=== PATIENT | female | born 1990 | race Caucasian/White ===

== ENCOUNTER 2019-05-22 06:30 | Inpatient (IN) | payer OTHER ==
--- NOTE | 2019-05-21 12:16 | PREOPHP ---
Date of Admission: 05/22/2019 History Of Present Illness: Ms. Stewart is a 28-year-old female, 3, para 2-0-0-2, now at 39+ weeks gestation. She will be admitted tomorrow for induction of labor secondary to term with favorable cervix. She has been followed by me during this without significant complications. Past Medical History: Please see record. Family History: Please see record. Review of Systems: She denies recent cough, cold, fever, or chills. No recent nausea or vomiting. No breast knots or l umps. No bowel or bladder issues. Infant has been active. She has been having more contractions. Physical Examination: General: Reveals a pleasant female, in no apparent distress. Neck: Supple without adenopathy or thyromegaly. Lungs: Clear. Cardiac: Regular rate and rhythm without murmurs. Breasts: Not examined. Abdomen: Estimated weight 7+ pounds. Pelvic: Not performed today. Extremities: No cyanosis, clubbing, or edema. is vertex presentation on external exam. Impression: Term . Plan: Patient will be admitted for induction of labor. We will rupture membranes after placement of epidural catheter because of issues with vaginismus. MICHELLE/LAZARO Voice ID: [id number]
[2019-05-22] MEDS ORDERED: Ringers Lactate 1,000 ML IV ONE (07:04)
[2019-05-22] MEDS ORDERED: METHYLERGONOVINE 0.2MG/ML AMP IM PRN ×2 (07:39→13:11)
[2019-05-22] MEDS ORDERED: Ringers Lactate 1,000 ML IV PRN (07:39)
[2019-05-22] MEDS ORDERED: PROMETHAZINE 25 MG/ML VIAL IV PRN (07:39)
[2019-05-22] MEDS ORDERED: CARBOPROST TROME 250 MCG/ML IM PRN ×2 (07:39→13:11)
[2019-05-22] MEDS ORDERED: BUTORPHANOL 1 MG/ML INJ IV PRN (07:39)
[2019-05-22] MEDS ORDERED: BUPIVACAINE 0.25% PF 30 ML VIAL IV ONE (07:52)
[2019-05-22] MEDS ORDERED: FENTANYL CITR 100 MCG/2 ML IV ONE (07:52)
[2019-05-22] MEDS ORDERED: ROPIVACAINE HCL 100 ML IV PRN (07:53)
[2019-05-22] MEDS ORDERED: Ringers Lactate 1,000 ML IV SCH (08:00)
[2019-05-22] MEDS ORDERED: OXYTOCIN/LR 20 UNIT/1,000 ML BAG IV SCH ×2 (08:00→14:00)
[2019-05-22 08:05] LABS: Urine Appearance CLEAR; Urine Bilirubin NEGATIVE (NEG); Urine Blood NEGATIVE (NEG); Urine Color YELLOW; Urine Glucose NEGATIVE (NEG); Urine Protein NEGATIVE (NEG); Urine Specific Gravity <=1.005 (1.005-1.030); Urine Urobilinogen 0.2 mg/dL (0.2-1.0)
[2019-05-22 08:06] LABS: Urine Microscopic Reflex ORDER UMIC
[2019-05-22] MEDS ORDERED: FENTANYL/BUPIVACAINE/NS/PF 200 MCG/100 ML BAG EP ONE (08:18)
[2019-05-22 08:31] LABS: Absolute Lymphocytes (CBC) 1.9 K/uL (0.7-4.9); Basophils % 0.5 % (0-1.3); Hematocrit 36.7 % (36.0-45.0); Lymphocytes % 25.5 % (15.3-44.8); MPV 8.7 fL (7.6-11.3); RBC Red Blood Cell Count 4.67 M/uL (3.86-4.86)
[2019-05-22 08:33] LABS: Urine Bacteria 20-50 /HPF (<20); Urine RBC NONE SEEN /HPF (NONE SEEN)
[2019-05-22 08:34] LABS: Urine Culture Reflex Order REFLEXED
[2019-05-22 09:34] VITALS: BMI 29.0
[2019-05-22] MEDS ORDERED: LIDOCAINE 1% MPF 30 ML VIAL ONE (10:21)
[2019-05-22] MEDS ORDERED: METHYLERGONOVINE 0.2 MG TAB PO PRN (13:11)
[2019-05-22] MEDS ORDERED: Oxycodone HCl/Acetaminophen 1 TAB TAB PO PRN (13:11)
--- NOTE | 2019-05-22 13:14 | P.BOP ---
Preoperative diagnosis: 39+wk Postoperative diagnosis: same, delivered Primary procedure: SCVD, viable female Secondary procedure: repair of 2 degree midline laceration Estimated blood loss: 300ml Anesthesia: epidural Complications: None Transferred to: Other ([id number]) Condition: Good
[2019-05-22] MEDS ORDERED: INFLUENZA VACCINE (for 3y+) 0.5 ML DOSE IMVAC ONE (17:00)
[2019-05-22] MEDS: IBUPROFEN 200 MG TAB PO PRN (18:15)
[2019-05-23] MEDS: IBUPROFEN 200 MG TAB PO PRN ×2 (00:42→08:00)
[2019-05-23] MEDS ORDERED: INFLUENZA VACCINE (for 3y+) 0.5 ML DOSE IMVAC ONE (07:44)
--- NOTE | 2019-05-23 11:33 | DN ---
Surgeon: Jarvis Farrar MD Ms. Stewart is a 28-year-old female, 3, para 2-0-0-2 at term, admitted fo r induction of labor. After placement of epidural catheter and Pitocin augmentation, her induction o f labor was begun. Artificial rupture of membrane was performed. She had a first stage of labor of approximately 3 hours and 9 minutes, second stage of labor of 33 minute. She was delivered by sponta neous controlled vaginal delivery of 7 pounds 5 ounce female . 9 and 9. The was delivered vertex OA. The cord was clamped, cut, and the infant placed on mother's upper abdomen. Co rd blood was obtained. The placenta was spontaneously expelled and appeared to be intact. The patie nt suffered a second-degree midline perineal laceration at the time of delivery, which was repaired i n the usual fashion with 3-0 Vicryl suture. She had epidural anesthesia during her labor course and received benefit from this. Estimated total blood loss was less than 300 mL. MICHELLE/LAZARO Voice ID: [id number] Report ID: [id number]
[2019-05-23 12:09] VITALS: BP 106/69; TEMP 98.1
[2019-05-24 01:01] LABS: RPR (Rapid Plasma Reagin) NON-REACT (NON-REACT)
--- NOTE | 2019-05-24 10:27 | DS ---
Date of Discharge: 05/23/2019 Final Hospital Discharge Diagnosis: 39+ week , delivered. Complications: Second-degree perineal laceration. Procedures: Placement of epidural catheter, artificial rupture of membranes, Pitocin induction of la bor, spontaneous controlled vaginal delivery of viable female infant, repair of second-degree perinea l laceration. Hospital Course: Patient is a 28-year-old female, 3, para 2-0-0-2 at 39+ w eeks gestation, admitted for elective induction of labor secondary to term . After placemen t of epidural catheter, exam revealed patient was 2+ to 3 cm dilated. Rupture of membranes performed , and Pitocin continued. She delivered a 7 pound 5 ounce female infant by spontaneous controlled vag inal delivery with epidural anesthesia. She was dismissed on the first day, ambulatory, o n select diet with routine post vaginal delivery activity restrictions to be seen back in my office i n 6 weeks. She had an admission hemoglobin and hematocrit of 12.3 and 36.7, dismissal hematocrit of 33.0. Urinalysis possibly suggestive of infection, but culture is pending. She has nonreactive RPR and she is Rh positive blood type. She was dismissed to continue taking her iron and vitami ns, be seen back in my office in 1 week. MICHELLE/LAZARO Voice ID: [id number] Report ID: [id number]
[2019-05-25 04:45] LABS: HBsAG Nonreactive (Nonreactive)
== END 2019-05-23 15:20 | disposition home or self-care (01) | DRG 807 ==
LOC: 2ND-WC 06:30
PROVIDERS: ADMIT Specialist; ATTEND Specialist
PROC: 10E0XZZ Delivery of Products of Conception, External Approach (ICD-10-PCS; principal; 2019-05-22)
PROC: 0KQM0ZZ Repair Perineum Muscle, Open Approach (ICD-10-PCS; 2019-05-22)
PROC: 10907ZC Drainage of Amniotic Fluid, Therapeutic from Products of Conception, Via Natural or Artificial Opening (ICD-10-PCS; 2019-05-22)
PROC: 00HU33Z Insertion of Infusion Device into Spinal Canal, Percutaneous Approach (ICD-10-PCS; 2019-05-22)
DX: O26.893 Other specified pregnancy related conditions, third trimester (principal); Z37.0 Single live birth; N94.2 Vaginismus; O70.1 Second degree perineal laceration during delivery; Z3A.39 39 weeks gestation of pregnancy
CPT/HCPCS: 36415; 81003; 81015; 85014; 85025; 86592; 86901; 87086; 87088; 87340; 90471; J2210; J2590; J2795; J3010; J7120; Q2035